=== PATIENT | female | born 1950 | race Caucasian/White ===

== ENCOUNTER 2019-03-09 09:40 | Emergency (ER) | payer MEDICARE ==
[2019-03-09 12:05] LABS: BLOOD UREA NITROGEN,BUN 12 mg/dL (7.0-18.0); CARBON DIOXIDE,CO2 26.6 mmol/L (21.0-32.0); CHLORIDE,CL 105 mmol/L (98-107); GLUCOSE RANDOM 97 mg/dL (74-106); POTASSIUM,K 4.1 mmol/L (3.5-5.1); SODIUM,NA 141 mmol/L (136-145)
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
== END 2019-03-09 13:17 | disposition home or self-care (01) ==
LOC: MW.ED 09:40
DX: F03.90 Unspecified dementia, unspecified severity, without behavioral disturbance, psychotic disturbance, mood disturbance, and anxiety (principal); Z88.5 Allergy status to narcotic agent; Z88.6 Allergy status to analgesic agent
CPT/HCPCS: 36415; 80053; 81001; 85025; 87086; 99283; 99284